=== PATIENT | female | born 1985 | race Caucasian/White ===

== ENCOUNTER 2018-09-22 17:04 | Outpatient (CLI) | payer MEDICAID ==
[2018-09-22 18:24] LABS: ADD MAN DIFF? NO
[2018-09-22] MEDS: LACTATED RINGER'S 1,000 ML IV (18:24)
[2018-09-22 18:26] LABS: WHITE BLOOD COUNT 8.3 10^3/ul (4.8-10.8)
[2018-09-22 18:26] LABS: BASOPHILS % 0.1 % (0.0-2.0); EOSINOPHILS # 0.3 10^3/ul (0.0-0.5); EOSINOPHILS % 3.2 % (0.0-7.0); HEMATOCRIT 32.7 % (37.0-47.0); HEMOGLOBIN 10.4 g/dl (12.0-16.0); LYMPHOCYTES # 1.4 10^3/ul (0.8-2.9); LYMPHOCYTES % 16.7 % (15.0-51.0); MEAN CORPUSCULAR HEMOGLOBIN 26.7 pg (29.0-33.0); MEAN CORPUSCULAR HGB CONC 31.8 g/dl (32.0-37.0); MEAN CORPUSCULAR VOLUME 84.1 fl (82.0-101.0); MEAN PLATELET VOLUME 10.3 fl (7.4-10.4); MONOCYTE # 0.7 10^3/ul (0.3-0.9); MONOCYTES % 8.2 % (0.0-11.0); NEUTROPHIL # 5.9 10^3/ul (1.6-7.5); NEUTROPHILS % 70.5 % (39.0-77.0); PLATELET COUNT 216 10^3/UL (140-415); RED BLOOD COUNT 3.89 10^6/ul (4.20-5.40)
[2018-09-22 18:33] LABS: ADD UMIC NO; UR ASCORBIC ACID NEGATIVE (NEGATIVE); UR BILIRUBIN (Dip) NEGATIVE (NEGATIVE); UR BLOOD (Dip) NEGATIVE (NEGATIVE); UR CLARITY CLEAR (CLEAR); UR COLOR STRAW (YELLOW); UR GLUCOSE (Dip) NEGATIVE (NEGATIVE); UR KETONES (Dip) NEGATIVE (NEGATIVE); UR LEUKOCYTE ESTERASE (Dip) NEGATIVE Leu/ul (NEGATIVE); UR NITRITE (Dip) NEGATIVE (NEGATIVE); UR SPECIFIC GRAVITY (Dip) 1.004 (1.003-1.030); UR TOTAL PROTEIN (Dip) NEGATIVE (NEGATIVE); UR UROBILINOGEN (Dip) NEGATIVE (NEGATIVE)
[2018-09-22 18:47] LABS: ALANINE AMINOTRANSFERASE 24 IU/L (13-69); ALBUMIN 3.6 g/dl (3.3-4.9); ALBUMIN/GLOBULIN RATIO 1.09; ALKALINE PHOSPHATASE 115 IU/L (42-121); ANION GAP 11 (5-13); ASPARTATE AMINO TRANSFERASE 26 IU/L (15-46); BILIRUBIN,INDIRECT 0.3 mg/dl (0-1.1); BILIRUBIN,TOTAL 0.3 mg/dl (0.2-1.3); CALCIUM 8.9 mg/dl (8.4-10.2); CARBON DIOXIDE 24 mmol/L (21-31); CHLORIDE 105 mmol/L (97-110); CREATININE 0.37 mg/dl (0.44-1.00); Estimated GFR > 60 mL/min (>60); GLUCOSE 85 mg/dl (70-220); POTASSIUM 3.7 mmol/L (3.5-5.1); SODIUM 140 mmol/L (135-144); TOTAL PROTEIN 6.9 g/dl (6.1-8.1)
[2018-09-22 18:48] LABS: BLOOD UREA NITROGEN < 2 mg/dl (7-20)
== END 2018-09-22 20:03 | disposition home or self-care (01) ==
LOC: OBT 17:04 → L-D 17:07 → OBT 20:03
DX: O26.893 Other specified pregnancy related conditions, third trimester (principal); R10.2 Pelvic and perineal pain; Z3A.31 31 weeks gestation of pregnancy
CPT/HCPCS: 36415; 76817; 76818; 80053; 81003; 85025; 96360; 96361

== ENCOUNTER 2018-10-26 18:31 | Outpatient (CLI) | payer MEDICAID ==
[2018-10-26 21:05] LABS: ADD UMIC YES; UR ASCORBIC ACID NEGATIVE (NEGATIVE); UR BACTERIA FEW /HPF (NONE SEEN); UR BILIRUBIN (Dip) NEGATIVE (NEGATIVE); UR BLOOD (Dip) NEGATIVE (NEGATIVE); UR CLARITY CLEAR (CLEAR); UR COLOR YELLOW (YELLOW); UR GLUCOSE (Dip) NEGATIVE (NEGATIVE); UR KETONES (Dip) NEGATIVE (NEGATIVE); UR LEUKOCYTE ESTERASE (Dip) TRACE Leu/ul (NEGATIVE); UR MUCUS FEW /HPF (NONE SEEN); UR NITRITE (Dip) NEGATIVE (NEGATIVE); UR RBC 0 /HPF (0-5); UR SPECIFIC GRAVITY (Dip) 1.018 (1.003-1.030); UR TOTAL PROTEIN (Dip) NEGATIVE (NEGATIVE); UR UROBILINOGEN (Dip) 1+ mg/dL (NEGATIVE); UR WBC 1 /HPF (0-5)
[2018-10-26] MEDS: ACETAMINOPHEN 500 MG TAB PO (22:59)
== END 2018-10-26 23:52 | disposition home or self-care (01) ==
LOC: OBT 18:31 → L-D 18:32
DX: O36.8130 Decreased fetal movements, third trimester, not applicable or unspecified (principal); Z3A.36 36 weeks gestation of pregnancy
CPT/HCPCS: 76815; 76818; 81001

== ENCOUNTER 2018-11-08 17:53 | Outpatient (CLI) | payer MEDICAID | END 2018-11-08 18:48 | disposition home or self-care (01) | LOC: OBT 17:53 → L-D 17:55 → OBT 18:48 | DX: O36.8330 Maternal care for abnormalities of the fetal heart rate or rhythm, third trimester, not applicable or unspecified (principal); Z3A.38 38 weeks gestation of pregnancy | CPT/HCPCS: 76818 ==

== ENCOUNTER 2018-11-11 18:26 | Inpatient (IN) | payer MEDICAID ==
[2018-11-11 23:17] LABS: ADD MAN DIFF? NO
[2018-11-11] MEDS: LACTATED RINGER'S 1,000 ML IV (23:20)
[2018-11-11 23:26] LABS: WHITE BLOOD COUNT 8.5 10^3/ul (4.8-10.8)
[2018-11-11 23:26] LABS: BASOPHILS % 0.2 % (0.0-2.0); EOSINOPHILS # 0.4 10^3/ul (0.0-0.5); EOSINOPHILS % 4.9 % (0.0-7.0); HEMATOCRIT 30.5 % (37.0-47.0); HEMOGLOBIN 9.6 g/dl (12.0-16.0); LYMPHOCYTES # 2.4 10^3/ul (0.8-2.9); LYMPHOCYTES % 27.7 % (15.0-51.0); MEAN CORPUSCULAR HEMOGLOBIN 25.3 pg (29.0-33.0); MEAN CORPUSCULAR HGB CONC 31.5 g/dl (32.0-37.0); MEAN CORPUSCULAR VOLUME 80.5 fl (82.0-101.0); MEAN PLATELET VOLUME 11.4 fl (7.4-10.4); MONOCYTE # 0.7 10^3/ul (0.3-0.9); MONOCYTES % 8.4 % (0.0-11.0); NEUTROPHIL # 4.9 10^3/ul (1.6-7.5); NEUTROPHILS % 57.4 % (39.0-77.0); PLATELET COUNT 230 10^3/UL (140-415); RED BLOOD COUNT 3.79 10^6/ul (4.20-5.40); RED CELL DISTRIBUTION WIDTH 14.6 % (11.5-14.5)
[2018-11-11] MEDS ORDERED: CARBOPROST 250 MCG INJ IM (23:30)
[2018-11-11] MEDS ORDERED: OXYTOCIN 30 UNITS/LR 500 ML IV (23:30)
[2018-11-11] MEDS: AMPICILLIN 2 GM/NS (PMX) 100 ML IVPB (23:30)
[2018-11-11 23:45] LABS: INR 0.87; PROTIME 11.9 Sec (11.9-14.9); PT RATIO 0.9
[2018-11-12] MEDS ORDERED: FENTAnyl 50 MCG/ML VIAL (00:01)
[2018-11-12] MEDS ORDERED: ONDANSETRON 4 MG INJ (00:01)
[2018-11-12] MEDS ORDERED: morphine SULFATE/PF (10 MG/10 ML) INJ (00:01)
[2018-11-12] MEDS ORDERED: DEXAMETHASONE 4 MG/ML 1 ML INJ (00:02)
[2018-11-12] MEDS ORDERED: DIPHENHYDRAMINE 50 MG INJ (00:02)
[2018-11-12] MEDS ORDERED: PROVENTIL HFA 6.7GM INHALER (00:12)
[2018-11-12] MEDS ORDERED: NALOXONE (0.4 MG/ML) INJ IV (02:00)
[2018-11-12] MEDS ORDERED: NALBUPHINE HCL (10 MG/1 ML) INJ IV (02:00)
[2018-11-12] MEDS ORDERED: HYDROmorphONE 0.5 MG/0.5 ML SYG IV (02:00)
[2018-11-12] MEDS ORDERED: ONDANSETRON 4 MG INJ IV (02:00)
[2018-11-12] MEDS ORDERED: ZOLPIDEM 5 MG TAB PO (02:00)
[2018-11-12] MEDS ORDERED: DIPHENHYDRAMINE 50 MG INJ IV (02:00)
[2018-11-12] MEDS: CEFAZOLIN 2 GM/50 ML (PMX) 50 ML IVPB (03:17)
[2018-11-12] MEDS: HYDROmorphONE 0.5 MG/0.5 ML SYG IV (03:18)
[2018-11-12] MEDS: OXYTOCIN 30 UNITS/LR 500 ML IV ×4 (03:24→19:28)
[2018-11-12] MEDS: MISOPROSTOL 200 MCG TAB PR (03:43)
[2018-11-12] MEDS: METHYLERGONOVINE 0.2 MG INJ IM (03:47)
[2018-11-12] MEDS: KETOROLAC 30 MG INJ IV (11:30)
[2018-11-12] MEDS: LACTATED RINGER'S 1,000 ML IV (15:34)
[2018-11-12] MEDS ORDERED: OXYTOCIN 30 UNITS/LR 500 ML IV (19:30)
[2018-11-12] MEDS ORDERED: CARBOPROST 250 MCG INJ IM (19:30)
[2018-11-12] MEDS ORDERED: NACL 0.9% 3 ML SYG IV (19:30)
[2018-11-12] MEDS ORDERED: LANOLIN HPA 1 PKT TOP (19:30)
[2018-11-12] MEDS ORDERED: MISOPROSTOL 200 MCG TAB PR (19:30)
[2018-11-12 21:41] LABS: RAPID PLASMA REAGIN NONREACTIVE (NR)
[2018-11-12] MEDS: IBUPROFEN 600 MG TAB PO (23:25)
[2018-11-12] MEDS: HYDROCODONE/APAP (5/325) TAB PO (23:25)
[2018-11-13] MEDS: HYDROCODONE/APAP (5/325) TAB PO (04:36)
[2018-11-13] MEDS: IBUPROFEN 600 MG TAB PO ×4 (06:15→23:35)
[2018-11-13 08:04] LABS: ADD MAN DIFF? NO
[2018-11-13 08:12] LABS: WHITE BLOOD COUNT 9.5 10^3/ul (4.8-10.8)
[2018-11-13 08:12] LABS: BASOPHILS % 0.2 % (0.0-2.0); EOSINOPHILS # 0.2 10^3/ul (0.0-0.5); EOSINOPHILS % 2.1 % (0.0-7.0); HEMATOCRIT 25.6 % (37.0-47.0); HEMOGLOBIN 7.9 g/dl (12.0-16.0); LYMPHOCYTES % 21.2 % (15.0-51.0); MEAN CORPUSCULAR HEMOGLOBIN 24.8 pg (29.0-33.0); MEAN CORPUSCULAR HGB CONC 30.9 g/dl (32.0-37.0); MEAN CORPUSCULAR VOLUME 80.5 fl (82.0-101.0); MEAN PLATELET VOLUME 10.9 fl (7.4-10.4); MONOCYTE # 0.6 10^3/ul (0.3-0.9); MONOCYTES % 6.4 % (0.0-11.0); NEUTROPHIL # 6.6 10^3/ul (1.6-7.5); NEUTROPHILS % 68.8 % (39.0-77.0); PLATELET COUNT 184 10^3/UL (140-415); RED BLOOD COUNT 3.18 10^6/ul (4.20-5.40); RED CELL DISTRIBUTION WIDTH 14.5 % (11.5-14.5)
[2018-11-13] MEDS: PRENATAL VITAMIN PO (08:31)
[2018-11-13] MEDS: DOCUSATE SODIUM 100 MG CAP PO (23:37)
[2018-11-14] MEDS: IBUPROFEN 600 MG TAB PO ×4 (05:33→23:53)
[2018-11-14] MEDS: DOCUSATE SODIUM 100 MG CAP PO ×2 (09:00→21:01)
[2018-11-14] MEDS ORDERED: DOCUSATE SODIUM 100 MG CAP PO (09:00)
[2018-11-14] MEDS: BISACODYL (EC) 5 MG TAB PO (09:03)
[2018-11-14] MEDS: PRENATAL VITAMIN PO (09:30)
[2018-11-14] MEDS: HYDROCODONE/APAP (5/325) TAB PO (21:02)
[2018-11-15] MEDS: IBUPROFEN 600 MG TAB PO ×3 (05:38→18:00)
[2018-11-15] MEDS: MEASLES,MUMPS,RUBELLA VACCINE INJ SC* (09:43)
[2018-11-15] MEDS: DOCUSATE SODIUM 100 MG CAP PO (09:43)
[2018-11-15] MEDS: PRENATAL VITAMIN PO (09:43)
[2018-11-15] MEDS: DIPHTH/TET/ACEL PERTUSS (ADULT) 0.5 ML VIAL IM* (12:14)
== END 2018-11-15 18:44 | disposition home or self-care (01) | DRG 785 ==
LOC: OBT 18:26 → L-D 11-12 00:36 → OBT 23:00 → PP1 11-12 04:38 → L-D 23:00
PROVIDERS: Obstetrics & Gynecology
PROC: 10D00Z1 Extraction of Products of Conception, Low, Open Approach (ICD-10-PCS; principal; 2018-11-12 00:30)
PROC: 0UB70ZZ Excision of Bilateral Fallopian Tubes, Open Approach (ICD-10-PCS; 2018-11-12 00:30)
DX: O34.219 Maternal care for unspecified type scar from previous cesarean delivery (principal); O99.02 Anemia complicating childbirth; D64.9 Anemia, unspecified; Z30.2 Encounter for sterilization; Z37.0 Single live birth; Z3A.38 38 weeks gestation of pregnancy
CPT/HCPCS: 76818; 85025; 85610; 85730; 86592; 86850; 86900; 86901; 88302; 90715; 99464